=== PATIENT | female | born 1975 | race Caucasian/White ===

== ENCOUNTER → 2019-11-16 15:28 | Outpatient (CLI) | payer OTHER, SELFPAY ==
--- NOTE | ~2019-11-16 | MM_ITS ---
EXAMINATION: MM screening virgil BI w joss HISTORY: Screening mammogram TECHNIQUE: Craniocaudal and mediolateral oblique 3-D tomosynthesis images were obtained and synthetic 2-D images were generated. CAD analysis was submitted and interpreted. COMPARISON: 01/30/2018 bilateral digital screening mammogram BREAST PARENCHYMAL COMPOSITION: There are scattered areas of fibroglandular density. FINDINGS: Low-density circumscribed benign axillary tail lymph nodes. There is no evidence of suspici ous mass, calcification, or architectural distortion to suggest malignancy in either breast. There taylor s been no suspicious interval change. IMPRESSION: 1. No mammographic evidence of malignancy. 2. Recommend routine screening mammography in one year. BI-RADS Category 2: Benign finding(s). Reviewed, dictated and finalized at location A.
== END ==
PROVIDERS: PCP Physician Assistant; Visit Provider Physician Assistant
DX: Z12.31 Encounter for screening mammogram for malignant neoplasm of breast (principal)
CPT/HCPCS: 77063; 77067

== ENCOUNTER 2019-12-01 00:37 | Outpatient (CLI) | payer OTHER, SELFPAY ==
[2019-12-01 18:37] LABS: SARS-CoV-2 RNA PCR Negative
== END 2019-12-01 00:38 | disposition home or self-care (01) ==
LOC: ANHCOVIDDT 00:37
PROVIDERS: PCP Physician Assistant; Visit Provider Surgery Plastic and Reconstructive Surgery
DX: Z01.812 Encounter for preprocedural laboratory examination (principal); Z20.828 Contact with and (suspected) exposure to other viral communicable diseases
CPT/HCPCS: 87635; C9803; U0003

== ENCOUNTER 2019-12-04 00:56 | Day surgery (SDC) | payer OTHER, SELFPAY ==
[2019-11-22 16:41] VITALS: BMI 38.2
[2019-12-04] VITALS (10 sets, daily range): BP systolic 126–147; BP diastolic 58–81; PULSE 70–93; RESP 12–16; TEMP 36.1; O2SAT 92–100
[2019-12-04 06:39] LABS: Urine Cotinine NEGATIVE
--- NOTE | 2019-12-04 06:42 | WPDANESEPPF ---
Anes - Initial Pre Proc Eval Procedure: Operation Date: 12/04/19 07:30 Proposed Procedures p Bilateral Breast Reduction - Lionel Ricardo MD Date/Time: 12/04/19 06:42 Surgeon: Lionel Ricardo MD Pre Op Diagnosis: macromastia Patient Data Age: 44 Gender: F Height: 5 ft 3 in Weight: 97.98 kg Allergies Allergy/AdvReac Type Severity Reaction Status Date / Time No Known Allergies Allergy Verified 11/22/19 16:34 Home Medications Medication Instructions Recorded Confirmed Type buspirone 15 mg tablet 15 mg PO BID 09/12/19 11/22/19 History fluoxetine 20 mg capsule 20 mg PO DAILY 09/12/19 11/22/19 History levothyroxine 75 mcg tablet 75 mcg PO DAILY 09/12/19 11/22/19 History loratadine 10 mg tablet 10 mg PO DAILY 09/12/19 11/22/19 History docusate sodium 100 mg capsule 100 mg PO BID #14 cap 11/21/19 11/22/19 Rx hydrocodone 5 mg-acetaminophen 325 1 tablet PO Q6H PRN #15 tablet 11/21/19 11/22/19 Rx mg tablet ondansetron HCl 4 mg tablet 4 mg PO Q6H PRN #30 tablet 11/21/19 11/22/19 Rx albuterol sulfate 2 puff INHALATION QID PRN 11/22/19 11/22/19 History alprazolam [Xanax] 0.25 mg PO DAILY PRN 11/22/19 11/22/19 History estradiol-norethindrone acet 1 tablet PO DAILY 11/22/19 11/22/19 History ibuprofen [Advil] 400 mg PO Q6H PRN 11/22/19 11/22/19 History Laboratory Tests 12/04/19 06:23 Cotinine Negative Patient hx anesthesia problems: none Family hx anesthesia problems: none PMFSH Past Medical History Medical History (Updated 12/04/19 @ 06:42 by Rick Marin MD) Anxiety Obesity Thyroid disease Family History Family History Mother Hypertension Social History Social History Years smoked: 2 Smoking status: Former smoker Tobacco type: cigarettes Second hand tobacco smoke exposure: No Alcohol intake: current Drinks per week: 1 Substance use: never Last use: 08-12-1994 Living arrangements: with family Spiritual care concerns: No Anes - Eval Final PreProcedure Day of Procedure 12/04/19 06:42 Patient weight: obese Heart: regular rate and rhythm Lungs: clear to auscultation Airway: Mallampati scale class II Neurological: alert and oriented Last oral intake: >/= 8 hours ASA classification: II Emergent: no Anesthetic plan: proceed Anesthesia type and monitoring: general ETT and standard monitoring Informed Consent: The patient's anesthetic plan and its attendant risks and benefits were discussed with the patient/family/POA. Questions were solicited and answers provided to the satisfaction of the patient/family/POA.
[2019-12-04] MEDS: SCOPOLAMINE 1.5 MG PATCH TRANSDERM (06:50)
[2019-12-04] MEDS: LACTATED RINGERS 1,000 ML 30 ML IV CONT ×2 (06:55→10:26)
--- NOTE | 2019-12-04 07:02 | WPDHPUPDATE1 ---
History and Physical Update Update Date/Time: 12/04/19 07:02 History and Physical has been reviewed, including an updated exam of the patient. There are NO changes in the patient's condition. Risks, benefits, and alternatives have been discussed and questions answered. Patient agrees to proceed with procedure.
--- NOTE | 2019-12-04 07:20 | PM.PROC ---
Procedure Note - Detailed Date of procedure: 12/04/19 Pre-op diagnosis: macromastia Post-op diagnosis: same Procedure performed: Bilateral breast reduction Description of procedure: She is here today for bilateral breast reduction. Previously and again today the risks, benefits, alternatives were discussed in extensive detail. I wanted her to be very realistic about the risks involved as well as expectations. We discussed aftercare and what to monitor for. She understands we can never guarantee final breast size and there will always be asymmetry. I was very upfront and honest about the risks of sensation change and even nipple loss (). She has elected to proceed with free nipple graft after discussing risks, benefits, and alternatives. Made sure answered all of her questions to her satisfaction today and consent was obtained. She was marked in the preoperative holding area with their verification. The patient was taken to the operating room placed supine on the operating table. Anesthesia was provided by anesthesiology. She was prepped and draped in a standard sterile fashion. A surgical time-out was taken. Stab incisions were made and I tumessed with a tumescent solution. I marked out the nipple-areolar complex at 42 mm. I then removed the NAC just deep to the dermis. I then removed the inferior portion of the breast as well as the central keel to get shape based on preoperative planning. At this point copiously irrigated with saline solution and verified a strict hemostasis. I reapproximated the pillars using a 2-0 PDS as well as along the IMF. I tailor tacked the breast into place with prudencio. She was placed in a sitting position. I verified the nipple-areolar complex position based on preoperative markings, intraoperative measurements, and observation which were in full agreement. This nipple-areolar complex was marked at 42 mm in size. I closed the vertical incision with 3-0 Monocryl in the IMF with 3-0 stratafix. Then everything was closed using a running subcuticular 4-0 Monocryl followed by Steri-Strips. NAC location was deepithelialized and NAC was defatted on deep surface. Sutured into place with 5-0 Chromic. Tie over bolster of xeroform, cotton, 3-0 Nylon. A dressing was placed followed by surgical bra. Patient was awoke and taken to PACU without difficulty. All instrument sponge counts were correct at the end of the case. Anesthesia: GLMA Surgeon: Lionel Ricardo MD Estimated blood loss (mL): 30 Drains: No Packing: No Pathology: yes Complications: No immediate complications Condition: stable Disposition: PACU Findings: Inverted T Reduction with Free nipple graft Tissue removed - Right: 1601 grams. Left: 1785 grams.
[2019-12-04] MEDS: ceFAZolin 2 GM/D5W 50 ML 2 GM/50 ML BAG IVPB (07:24)
[2019-12-04] MEDS: fentaNYL CITRATE INJ (*CRX) 100 MCG/2 ML VIAL 25 MCG IV PUSH ×4 (11:12→11:30)
== END 2019-12-04 12:52 | disposition home or self-care (01) ==
PROVIDERS: PCP Physician Assistant; Visit Provider Surgery Plastic and Reconstructive Surgery
PROC: 0HBV0ZZ Excision of Bilateral Breast, Open Approach (ICD-10-PCS; CPT 19318; principal; 2019-12-04 07:30)
DX: N62 Hypertrophy of breast (principal); N60.12 Diffuse cystic mastopathy of left breast; N60.41 Mammary duct ectasia of right breast; N60.42 Mammary duct ectasia of left breast; N60.82 Other benign mammary dysplasias of left breast; N60.11 Diffuse cystic mastopathy of right breast; N64.4 Mastodynia; N64.89 Other specified disorders of breast; L30.4 Erythema intertrigo; G89.29 Other chronic pain; M25.512 Pain in left shoulder; M25.511 Pain in right shoulder; M54.9 Dorsalgia, unspecified; M54.2 Cervicalgia; E03.9 Hypothyroidism, unspecified; F41.9 Anxiety disorder, unspecified; E66.01 Morbid (severe) obesity due to excess calories; Z68.38 Body mass index [BMI] 38.0-38.9, adult; Z87.891 Personal history of nicotine dependence
CPT/HCPCS: 19318; 80307; 87635; 88305; A9270; C9803; J0171; J0690; J1100; J2250; J2405; J2704; J3010; J7120; U0003

== ENCOUNTER 2021-11-12 14:17 | Emergency (ER) | payer OTHER, SELFPAY ==
--- NOTE | 2021-11-12 14:22 | ED.URI ---
HPI - URI/Sore Throat General Chief Complaint: Upper Respiratory Infection Stated Complaint: Bilateral Ear Irritation,Sore Throat Time Seen by Provider: 11/12/21 14:22 Source: patient, RN notes reviewed and old records reviewed Mode of arrival: ambulatory Limitations: no limitations History of Present Illness HPI Narrative: 46-year-old female presents to the [facility] with complaints of bilateral ear pain and sore throat since Tuesday. NO Fevers. Children were sick last week Related Data Home Medications Medication Instructions Recorded Confirmed buspirone 15 mg tablet 15 mg PO BID 09/12/19 11/12/21 fluoxetine 20 mg capsule 20 mg PO DAILY 09/12/19 11/12/21 levothyroxine 75 mcg tablet 75 mcg PO DAILY 09/12/19 11/12/21 (Synthroid) loratadine 10 mg tablet (Claritin) 10 mg PO PRN PRN sneezing 09/12/19 11/12/21 albuterol sulfate 90 mcg/actuation 2 puff inhalation QID PRN SOB 11/22/19 11/12/21 aerosol inhaler wheezing alprazolam 0.25 mg tablet (Xanax) 0.25 mg PO DAILY PRN Anxiety 11/22/19 11/12/21 estradiol-norethindrone acet 1 1 tablet PO DAILY 11/22/19 11/12/21 mg-0.5 mg tablet Allergies Allergy/AdvReac Type Severity Reaction Status Date / Time No Known Allergies Allergy Verified 11/12/21 14:19 Review of Systems Review of Systems: All systems reviewed & are unremarkable except as noted in HPI and below Constitutional: Constitutional: Reports no additional constitutional complaints, Denies chills and Denies fever(s) Eyes: Eyes: Reports no additional eye complaints ENT: Reports as per HPI, Reports nasal congestion and Reports sore throat Cardiovascular: Cardiovascular: Reports no additional cardiovascular complaints Respiratory: Respiratory: Reports no additional respiratory complaints Gastrointestinal: Gastrointestinal: Reports no additional gastrointestinal complaints Musculoskeletal: Musculoskeletal: Reports no additional musculoskeletal complaints Integumentary/Breasts: Skin/Breast: Reports system reviewed and no additional complaints, except as docu Neurologic: Reports system reviewed and no additional complaints, except as documented Psychiatric: Psychiatric: Reports no additional psychiatric complaints Allergic/Immunologic: Allergic/Immunologic: Reports no additional allergic/immunologic complaints PMFSH Past Medical History Medical History Anxiety Obesity Thyroid disease Family History Family History Mother Hypertension Social History Social History Years smoked: 2 Smoking status: Former smoker Tobacco type: cigarettes Second hand tobacco smoke exposure: No Alcohol intake: current Drinks per week: 1 Substance use: never Last use: 08-12-1994 Spiritual care concerns: No Comments At the time of my signature, I reviewed and agree with the nursing past medical, surgical, social, and family history. There is no relevant family history pertinent to the patient complaint. Exam Const: General: healthy appearing, no acute distress and alert Nutritional Appearance: well nourished and obese Orientation/consciousness: patient oriented x3 Limitations: no limitations HENMT: Head: normal to inspection Ears: external ears normal, EAC's normal and TM abnormal with fluid behind the TM bilateral General nose exam: Normal external nose present Mouth: Yes Normal oral and palatal mucosa present, Yes lip normal and Yes moist mucous membranes Throat: posterior oropharynx normal Eyes: General: appearance normal, both eyes and all related structures Pupils: Equal, round and reactive pupils present Neck: Neck: normal visual inspection, no lymphadenopathy and no meningeal signs Chest: Chest palpation & inspection: normal inspection of the chest Resp: Effort & Inspection: normal respiratory effort and no use of acces
[2021-11-12 14:27] VITALS: BP 135/75; PULSE 78; RESP 18; TEMP 36.7; O2SAT 100
== END 2021-11-12 14:42 | disposition home or self-care (01) ==
PROVIDERS: Emergency Provider Nurse Practitioner; PCP Physician Assistant
DX: U07.1 COVID-19 (principal); H65.01 Acute serous otitis media, right ear; F41.9 Anxiety disorder, unspecified; E66.9 Obesity, unspecified; Z68.41 Body mass index [BMI] 40.0-44.9, adult; Z87.891 Personal history of nicotine dependence; E03.9 Hypothyroidism, unspecified
CPT/HCPCS: 87081; 87426; 87880; 99213; C9803; G0463

== ENCOUNTER 2023-07-06 10:47 | Outpatient (CLI) | payer OTHER, SELFPAY ==
--- NOTE | ~2023-07-06 | MM_ITS ---
EXAMINATION: MM screening virgil BI w joss HISTORY: Screening mammogram TECHNIQUE: Craniocaudal and mediolateral oblique 3-D tomosynthesis images were obtained and synthetic 2-D images were generated. CAD analysis was submitted and interpreted. COMPARISON: 11/16/2019 bilateral screening mammogram examination BREAST PARENCHYMAL COMPOSITION: There are scattered areas of fibroglandular density............... FINDINGS: History of bilateral breast reduction mammoplasty in December 2019 since prior 11/2019 mammo gram. There is no evidence of suspicious mass, calcification, or architectural distortion to suggest malignancy in either breast. There has been no suspicious interval change. IMPRESSION: 1. Status post bilateral reduction mammoplasty. No mammographic evidence of malignancy. 2. Recommend routine screening mammography in one year. BI-RADS Category 1: Negative Reviewed, dictated and finalized at location A. IMPRESSION: 1. Status post bilateral reduction mammoplasty. No mammographic evidence of mal ignancy. 2. Recommend routine screening mammography in one year. BI-RADS Category 1: Negative
== END 2023-07-06 10:48 ==
LOC: MICIMG 10:48
PROVIDERS: PCP Physician Assistant; Visit Provider Obstetrics & Gynecology
DX: Z12.31 Encounter for screening mammogram for malignant neoplasm of breast (principal)
CPT/HCPCS: 77063; 77067

== ENCOUNTER 2024-11-22 14:48 | Outpatient (CLI) | payer OTHER, SELFPAY ==
--- NOTE | ~2024-11-22 | MM_ITS ---
EXAMINATION: MM screening virgil BI w joss HISTORY: Screening. Bilateral reduction surgery. TECHNIQUE: Craniocaudal and mediolateral oblique 3-D tomosynthesis images were obtained and synthetic 2-D images were generated. CAD analysis was submitted and interpreted. COMPARISON: Comparison to multiple prior studies sequentially, with oldest reviewed study dated , 01/30/2018 BREAST PARENCHYMAL COMPOSITION: There are scattered areas of fibroglandular density. FINDINGS: There is no evidence of suspicious mass, calcification, or architectural distortion to suggest malignancy in either breast. IMPRESSION: 1. No mammographic evidence of malignancy. 2. Recommend routine screening mammography in one year. BI-RADS Category 1: Negative Reviewed, dictated and finalized at location B.
== END 2024-11-22 14:49 | disposition home or self-care (01) ==
LOC: MICIMG 14:49
PROVIDERS: PCP Physician Assistant; Visit Provider Obstetrics & Gynecology
DX: Z12.31 Encounter for screening mammogram for malignant neoplasm of breast (principal)
CPT/HCPCS: 77063; 77067